=== PATIENT | female | born 1990 | race Caucasian/White ===

== ENCOUNTER 2016-10-16 19:06 | Emergency (ER) | payer OTHER ==
[~2016-10-16] VITALS: Ht 162.6 cm; Wt 60.0 kg
[~2016-10-16 19:06] MED LIST: ABILIFY5 MG PO; ASPIRIN81 M2 PO; ATIVAN0.5 M1 PO; B COMPLETE1 EACH PO; BENADRYL50 MG PO; BENTYL20 MG PO; BUPROPION XL300 MG PO; BUTALB-APAP-CA1 EACH; BUTALB-APAP-CA1 EACH PO; CIPRO500 MG PO; CYMBALTA30 MG PO; DEPAKOTE ER250 MG PO; DEPAKOTE250 MG PO; DEPO ESTRADIO5 MG/ML; DICYCLOMINE HCL10 MG PO; DIVALPROEX SOD250 M1 PO; DIVALPROEX SOD250 MG; ENDOCET 5-3251 EACH PO; EPIPEN ADU0.3 MG/0.3 IM; EXCEDRIN MIGRA1 EAC3 PO; FLEXERIL10 MG PO; FLEXERIL5 MG PO; FLUTICASONE PRO16 GM; GABAPENTIN300 MG PO; GUMMI BEAR MUL1 EACH PO; IBUPROFEN800 MG PO; IMITREX100 MG PO; IMITREX50 MG PO; IMITREX6 MG/0.5 M SC; KEFLEX500 MG PO; KENALOG,ARISTOC80 G1 TP; LITHIUM CARBON300 MG; LORATADINE10 M2; MAALOX ADVANCE355 ML PO; MAXALT10 MG PO; MELATONIN5 M1 PO; METOCLOPRAMIDE10 MG PO; METOPROLOL SUCC50 MG PO; MOTRIN800 MG PO; MULTIVITAMIN1 EAC2 PO; NAMENDA10 MG PO; NEURONTIN; NEURONTIN100 MG PO; NEURONTIN300 MG PO; NITROFURANTOIN100 M3 PO; NORCO 5/3251 TABLET PO; NORTRIPTYLINE H10 MG PO; NYSTATIN-TRIAMC15 G1 TP; ONDANSETRON HCL4 MG PO; ONDANSETRON ODT4 MG PO; PANTOPRAZOLE SO40 MG PO; PEN-VEE K,VEET500 MG PO; PREDNISONE10 M1 PO; PRENATABS RX T1 EACH PO; PRENATAL VITAM1 EAC2 PO; PRILOSEC40 MG PO; PROAIR HFA8.5 GM IH; PROMETHAZINE HC25 M1 PO; PROTONIX40 MG PO; QUETIAPINE FUM100 MG PO; REGLAN10 MG PO; SEROQUEL100 MG PO; SERTRALINE HCL50 MG PO; TESSALON200 MG PO; TOPAMAX25 MG PO; TOPIRAMATE25 MG PO; TOPROL XL50 MG PO; TORADOL10 MG PO; TRAMADOL HCL50 MG PO; TRAZODONE HCL50 MG PO; TYLENOL EXTRA500 MG PO; TYLENOL REGULA325 MG PO; TYLENOL WITH C1 EACH PO; ULTRACET1 TABLET PO; UNISOM25 MG PO; VITAMIN B-12250 MCG PO; VITAMIN D-32000 UNI1 PO; VITAMIN D3 5,01 EACH PO; VITAMIN D400 INTUNI PO; WELLBUTRIN XL300 MG PO; ZANTAC150 MG PO; ZOFRAN ODT4 MG PO; ZOFRAN ODT8 MG PO; ZOFRAN4 MG PO; ZOFRAN8 MG PO; ZOLOFT25 MG PO; ZOLOFT50 MG PO; vitamin b6 PO
[2016-10-16 22:41] LABS: ADD MIUA? YES; BILIRUBIN NEGATIVE; BLOOD NEGATIVE; COLOR YELLOW ((YELLOW)); GLUCOSE (STRIP) NEGATIVE; KETONES NEGATIVE; LEUKOCYTES NEGATIVE; NITRITE NEGATIVE; PROTEIN (STRIP) NEGATIVE; SPECIFIC GRAVITY 1.016 (1.000-1.030); UROBILINOGEN 0.2 MG/DL (0.2-1.0)
[2016-10-16 22:45] LABS: BACTERIA RARE /HPF; EPITHELIAL CELLS RARE /HPF; MUCUS TRACE /LPF
[2016-10-16] MEDS ORDERED: REGLAN10 MG PO (22:49)
[2016-10-16] MEDS ORDERED: NAPROSYN500 MG PO (22:49)
[2016-10-16 23:28] VITALS: BP 147/90
== END 2016-10-16 23:46 | disposition home or self-care (01) ==
LOC: EME 19:06
PROVIDERS: Physician Assistant
DX: G43.909 Migraine, unspecified, not intractable, without status migrainosus (principal); J45.909 Unspecified asthma, uncomplicated; M79.7 Fibromyalgia; I10 Essential (primary) hypertension; K21.9 Gastro-esophageal reflux disease without esophagitis; F17.200 Nicotine dependence, unspecified, uncomplicated
CPT/HCPCS: 81003; 99281; 99285; J1200; J1885; J2765; J3030; J7030

== ENCOUNTER 2016-10-23 15:41 | Emergency (ER) | payer OTHER ==
[~2016-10-23] VITALS: Ht 162.6 cm; Wt 60.0 kg
[~2016-10-23 15:41] MED LIST changes: +NAPROSYN500 MG PO
[2016-10-23] MEDS ORDERED: FLEXERIL10 MG PO (19:15)
[2016-10-23] MEDS ORDERED: MOTRIN800 MG PO (19:15)
[2016-10-23 19:25] VITALS: BP 127/79
== END 2016-10-23 19:26 | disposition home or self-care (01) ==
LOC: EME 15:41
DX: S39.012A Strain of muscle, fascia and tendon of lower back, initial encounter (principal); M79.604 Pain in right leg; M54.2 Cervicalgia; X58.XXXA Exposure to other specified factors, initial encounter; G89.29 Other chronic pain; F17.200 Nicotine dependence, unspecified, uncomplicated
CPT/HCPCS: 72100; 99281; 99284; J1885

== ENCOUNTER 2016-10-27 13:23 | Emergency (ER) | payer OTHER ==
[~2016-10-27] VITALS: Ht 160 cm; Wt 59.4 kg
[2016-10-27] MEDS ORDERED: SUMATRIPTAN SU100 MG PO (14:26)
[2016-10-27] MEDS ORDERED: FIORICET,ESG1 TABLET PO (15:09)
[2016-10-27 15:20] VITALS: BP 119/76
== END 2016-10-27 15:26 | disposition home or self-care (01) ==
LOC: EME 13:23
DX: G43.109 Migraine with aura, not intractable, without status migrainosus (principal); K21.9 Gastro-esophageal reflux disease without esophagitis; M79.7 Fibromyalgia; F31.9 Bipolar disorder, unspecified; F17.200 Nicotine dependence, unspecified, uncomplicated
CPT/HCPCS: 99281; 99285; J0780; J1100; J1885; J7030

== ENCOUNTER 2016-11-02 14:07 | Emergency (ER) | payer OTHER ==
[~2016-11-02] VITALS: Ht 162.6 cm; Wt 60.0 kg
[~2016-11-02 14:07] MED LIST changes: +FIORICET,ESG1 TABLET PO; +SUMATRIPTAN SU100 MG PO
[2016-11-02 18:03] VITALS: BP 125/75
== END 2016-11-02 18:46 | disposition home or self-care (01) ==
LOC: EME 14:07
DX: R51 Headache (principal); F17.200 Nicotine dependence, unspecified, uncomplicated
CPT/HCPCS: 99281; 99284; J0780; J1100; J1200; J1885

== ENCOUNTER 2016-12-13 08:33 | Emergency (ER) | payer OTHER ==
[~2016-12-13] VITALS: Ht 162.6 cm; Wt 61.9 kg
[2016-12-13 08:34] VITALS: BP 141/93
[2016-12-13] MEDS ORDERED: NAPROSYN500 MG PO (09:41)
[2016-12-13] MEDS ORDERED: FLEXERIL10 MG PO (09:54)
== END 2016-12-13 09:58 | disposition home or self-care (01) ==
LOC: EME 08:33
DX: S43.402A Unspecified sprain of left shoulder joint, initial encounter (principal); S40.022A Contusion of left upper arm, initial encounter; Z88.6 Allergy status to analgesic agent
CPT/HCPCS: 73030; 73060; 99281; 99282

== ENCOUNTER 2016-12-25 22:25 | Emergency (ER) | payer OTHER ==
[~2016-12-25] VITALS: Ht 162.6 cm; Wt 62.6 kg
[2016-12-26 00:25] VITALS: BP 121/90
== END 2016-12-26 00:25 | disposition left against medical advice (07) ==
LOC: EME 22:25
DX: R11.2 Nausea with vomiting, unspecified (principal); R10.32 Left lower quadrant pain; J45.909 Unspecified asthma, uncomplicated; F31.9 Bipolar disorder, unspecified; M79.7 Fibromyalgia; I10 Essential (primary) hypertension; K21.9 Gastro-esophageal reflux disease without esophagitis; F17.200 Nicotine dependence, unspecified, uncomplicated
CPT/HCPCS: 99281; 99283

== ENCOUNTER 2017-02-11 20:45 | Emergency (ER) | payer OTHER ==
[~2017-02-11] VITALS: Ht 162.6 cm; Wt 64.7 kg
[2017-02-11 21:35] LABS: ADD MIUA? YES; BILIRUBIN NEGATIVE; BLOOD MODERATE; COLOR YELLOW ((YELLOW)); GLUCOSE (STRIP) NEGATIVE; KETONES NEGATIVE; LEUKOCYTES NEGATIVE; NITRITE NEGATIVE; PROTEIN (STRIP) NEGATIVE; SPECIFIC GRAVITY 1.016 (1.000-1.030); UROBILINOGEN 0.2 MG/DL (0.2-1.0)
[2017-02-11 21:52] LABS: BACTERIA RARE /HPF; EPITHELIAL CELLS RARE /HPF; MUCUS TRACE /LPF; RED BLOOD CELLS 0-5 /HPF (0-5); UCUL ADDED? NO; WHITE BLOOD CELLS 0-5 /HPF (0-5)
[2017-02-11 22:01] LABS: HEMATOCRIT 40.6 % (36.0-46.0); MCH 33.9 PG (29.0-34.0); MCHC 34.7 G/DL (30.0-36.0); MCV 97.6 FL (83-99); MEAN PLAT.VOLUME 10.1 uM^3 (9.5-12.4); PLATELET COUNT 279 K/uL (156-360); RBC DIS.WIDTH-CV 11.3 % (11.8-14.6); RED BLOOD COUNT 4.16 M/uL (3.80-5.20); WHITE BLOOD COUNT 13.6 K/uL (4.1-10.2)
[2017-02-11 22:11] LABS: CHLORIDE 110 mEq/L (99-109); POTASSIUM 3.9 mEq/L (3.7-5.4); SODIUM 138 mEq/L (136-147)
[2017-02-11 22:13] LABS: GLUCOSE 106 mg/dL (70-99)
[2017-02-11 22:15] LABS: ANION GAP 8 MEQ/L (2-14)
[2017-02-11 22:17] LABS: GFR ESTIMATE (CALCULATED) > 59 mL/min/
[2017-02-11 22:18] LABS: UREA NITROGEN (BUN) 11 mg/dL (9-23)
[2017-02-11 22:25] LABS: QUANTITATIVE HCG < 4.0 MIU/ML
[2017-02-12 00:41] VITALS: BP 133/101
== END 2017-02-12 00:42 | disposition home or self-care (01) ==
LOC: EME 20:45
DX: R11.2 Nausea with vomiting, unspecified (principal); R19.7 Diarrhea, unspecified; I10 Essential (primary) hypertension; K21.9 Gastro-esophageal reflux disease without esophagitis; Z87.891 Personal history of nicotine dependence
CPT/HCPCS: 80048; 81003; 84702; 85027; 99281; 99284; J2405; J7030

== ENCOUNTER 2017-04-25 09:20 | Day surgery (SDC) | payer OTHER ==
[~2017-04-25] VITALS: Ht 162.6 cm; Wt 63.0 kg
[~2017-04-25 09:20] MED LIST changes: +NEURONTIN400 MG PO; +SKELAXIN800 MG PO
== END 2017-04-25 12:52 | disposition home or self-care (01) ==
LOC: PAIN 09:20 → SDC 10:00 → PAIN 12:52
DX: M47.816 Spondylosis without myelopathy or radiculopathy, lumbar region (principal); M54.5 Low back pain; G89.29 Other chronic pain; M51.36 Other intervertebral disc degeneration, lumbar region; M54.2 Cervicalgia; M79.7 Fibromyalgia; F43.23 Adjustment disorder with mixed anxiety and depressed mood; I10 Essential (primary) hypertension; J45.30 Mild persistent asthma, uncomplicated; Z87.891 Personal history of nicotine dependence
CPT/HCPCS: J1030; J1200; J2250; J2405; J2550; J3010; S0020

== ENCOUNTER 2017-05-19 19:26 | Emergency (ER) | payer OTHER ==
[~2017-05-19] VITALS: Ht 162.6 cm; Wt 62.9 kg
[~2017-05-19 19:26] MED LIST changes: +ANTIVERT25 MG PO; +FIORICET 50-301 EAC1 PO
[2017-05-19 21:26] VITALS: BP 137/104
== END 2017-05-19 21:33 | disposition home or self-care (01) ==
LOC: EME 19:26
DX: S30.0XXA Contusion of lower back and pelvis, initial encounter (principal); S70.11XA Contusion of right thigh, initial encounter; W10.9XXA Fall (on) (from) unspecified stairs and steps, initial encounter; M54.16 Radiculopathy, lumbar region; Z87.891 Personal history of nicotine dependence
CPT/HCPCS: 72170; 99281; 99284; J1100

== ENCOUNTER 2017-06-17 20:57 | Emergency (ER) | payer OTHER ==
[~2017-06-17] VITALS: Ht 162.6 cm; Wt 65.7 kg
[2017-06-17 21:25] LABS: MCH 33.6 PG (29.0-34.0); MCHC 35.1 G/DL (30.0-36.0); MCV 95.7 FL (83-99); MEAN PLAT.VOLUME 10.1 uM^3 (9.5-12.4); PLATELET COUNT 326 K/uL (156-360); RBC DIS.WIDTH-CV 11.9 % (11.8-14.6); RBC DIS.WIDTH-SD 41.7 % (39-53); WHITE BLOOD COUNT 14.4 K/uL (4.1-10.2)
[2017-06-17 21:33] LABS: CHLORIDE 106 mEq/L (99-109); SODIUM 139 mEq/L (136-147)
[2017-06-17 21:35] LABS: GLUCOSE 109 mg/dL (70-99)
[2017-06-17 21:37] LABS: ANION GAP 11 MEQ/L (2-14); TOTAL BILIRUBIN 0.2 mg/dL (0.0-1.0)
[2017-06-17 21:39] LABS: ALKALINE PHOSPHATASE 82 IU/L (3-129); GFR ESTIMATE (CALCULATED) > 59 mL/min/
[2017-06-17 21:40] LABS: UREA NITROGEN (BUN) 27 mg/dL (9-23)
[2017-06-17 21:48] LABS: QUANTITATIVE HCG < 4.0 MIU/ML
[2017-06-17 22:05] LABS: ADD MIUA? YES; BILIRUBIN NEGATIVE; BLOOD LARGE; COLOR YELLOW ((YELLOW)); GLUCOSE (STRIP) NEGATIVE; KETONES NEGATIVE; LEUKOCYTES SMALL; NITRITE NEGATIVE; PROTEIN (STRIP) 30; SPECIFIC GRAVITY 1.027 (1.000-1.030); UROBILINOGEN 0.2 MG/DL (0.2-1.0)
[2017-06-17 22:15] LABS: BACTERIA RARE /HPF; EPITHELIAL CELLS 2+ /HPF; MUCUS 1+ /LPF; UCUL ADDED? YES
[2017-06-18] MEDS ORDERED: ONDANSETRON ODT4 MG PO (00:32)
[2017-06-18 00:53] LABS: TROP-I INTERPRETATION NEGATIVE; TROPONIN-I < 0.01 ng/mL (0.0-0.30)
[2017-06-18 01:28] VITALS: BP 132/88
[2017-06-19] MEDS ORDERED: VITAMIN D5000 UNI1 PO (09:54)
[2017-06-19] MEDS ORDERED: ERGOCALCIF50000 UNIT PO (09:54)
[2017-06-19] MEDS ORDERED: VITAMIN B-12250 MCG PO (09:54)
[2017-06-19 13:08] LABS: CHLAMYDIA TRACHOMATIS NEGATIVE; NEISSERIA GONORRHOEAE NEGATIVE
== END 2017-06-18 01:29 | disposition home or self-care (01) ==
LOC: EME 20:57
PROVIDERS: Emergency Medicine
DX: R10.30 Lower abdominal pain, unspecified (principal); R10.10 Upper abdominal pain, unspecified; R07.9 Chest pain, unspecified; R11.10 Vomiting, unspecified; R00.0 Tachycardia, unspecified; Z98.890 Other specified postprocedural states; M79.7 Fibromyalgia; K21.9 Gastro-esophageal reflux disease without esophagitis; I10 Essential (primary) hypertension; J45.909 Unspecified asthma, uncomplicated; F41.9 Anxiety disorder, unspecified; F32.9 Major depressive disorder, single episode, unspecified; F31.9 Bipolar disorder, unspecified; G43.909 Migraine, unspecified, not intractable, without status migrainosus; Z87.891 Personal history of nicotine dependence; Z88.5 Allergy status to narcotic agent; Z88.8 Allergy status to other drugs, medicaments and biological substances
CPT/HCPCS: 80053; 81003; 84443; 84484; 84702; 85027; 87086; 87210; 87491; 87591; 93005; 99281; 99285; J2405; J7030

== ENCOUNTER 2017-06-20 10:45 | Day surgery (SDC) | payer OTHER ==
[~2017-06-20] VITALS: Ht 162.6 cm; Wt 63.0 kg
[~2017-06-20 10:45] MED LIST changes: +ERGOCALCIF50000 UNIT PO; +VITAMIN D5000 UNI1 PO
== END 2017-06-20 13:03 | disposition home or self-care (01) ==
LOC: PAIN 10:45 → SDC 11:00 → PAIN 11:00
DX: M47.816 Spondylosis without myelopathy or radiculopathy, lumbar region (principal); G89.29 Other chronic pain; M54.5 Low back pain; M51.36 Other intervertebral disc degeneration, lumbar region; M54.2 Cervicalgia; M79.7 Fibromyalgia; I10 Essential (primary) hypertension; G93.5 Compression of brain; E66.3 Overweight; Z68.23 Body mass index [BMI] 23.0-23.9, adult; J45.909 Unspecified asthma, uncomplicated; Z87.891 Personal history of nicotine dependence
CPT/HCPCS: J1030; J1885; J2250; J3010; S0020

== ENCOUNTER 2017-06-27 10:25 | Day surgery (SDC) | payer OTHER ==
[~2017-06-27] VITALS: Ht 162.6 cm; Wt 63.0 kg
== END 2017-06-27 13:30 | disposition home or self-care (01) ==
LOC: PAIN 10:25 → SDC 11:00 → PAIN 11:00
DX: M47.816 Spondylosis without myelopathy or radiculopathy, lumbar region (principal); M54.5 Low back pain; G89.29 Other chronic pain; M51.36 Other intervertebral disc degeneration, lumbar region; I10 Essential (primary) hypertension; F41.9 Anxiety disorder, unspecified; K21.9 Gastro-esophageal reflux disease without esophagitis; R94.31 Abnormal electrocardiogram [ECG] [EKG]; Z87.891 Personal history of nicotine dependence
CPT/HCPCS: J1030; J1885; J2250; J3010; S0020

== ENCOUNTER 2017-11-11 00:43 | Emergency (ER) | payer OTHER ==
[~2017-11-11] VITALS: Ht 162.6 cm; Wt 68.3 kg
[2017-11-11 01:15] LABS: HEMATOCRIT 38.6 % (36.0-46.0); HEMOGLOBIN 13.6 G/DL (11.9-15.5); MCH 33.3 PG (29.0-34.0); MCHC 35.2 G/DL (30.0-36.0); MCV 94.6 FL (83-99); PLATELET COUNT 261 K/uL (156-360); RBC DIS.WIDTH-CV 11.8 % (11.8-14.6); RBC DIS.WIDTH-SD 40.7 % (39-53); RED BLOOD COUNT 4.08 M/uL (3.80-5.20); WHITE BLOOD COUNT 7.6 K/uL (4.1-10.2)
[2017-11-11 01:28] LABS: ALBUMIN 4.5 g/dL (3.2-4.8); CHLORIDE 108 mEq/L (99-109); POTASSIUM 4.1 mEq/L (3.7-5.4); SODIUM 141 mEq/L (136-147)
[2017-11-11 01:30] LABS: GLUCOSE 108 mg/dL (70-99)
[2017-11-11 01:31] LABS: TOTAL PROTEIN 7.2 g/dL (6.4-8.3)
[2017-11-11 01:32] LABS: TOTAL BILIRUBIN 0.4 mg/dL (0.0-1.0)
[2017-11-11 01:34] LABS: ALKALINE PHOSPHATASE 71 IU/L (3-129); CREATININE 0.8 mg/dL (0.6-1.3); GFR ESTIMATE (CALCULATED) > 59 mL/min/
[2017-11-11 01:35] LABS: UREA NITROGEN (BUN) 8 mg/dL (9-23)
[2017-11-11 01:36] LABS: AST (GOT) 15 IU/L (2-34)
[2017-11-11 01:37] LABS: ALT (GPT) 11 IU/L (3-49); LIPASE 33 U/L (1.0-51.0)
[2017-11-11 01:44] LABS: QUANTITATIVE HCG < 4.0 MIU/ML
[2017-11-11 02:31] LABS: SERUM ETHYL ALCOHOL < 10 mg/dL
[2017-11-11 02:31] LABS: APPEARANCE CLEAR ((CLEAR)); BILIRUBIN NEGATIVE; BLOOD NEGATIVE; COLOR YELLOW ((YELLOW)); GLUCOSE (STRIP) NEGATIVE; KETONES 5; LEUKOCYTES NEGATIVE; NITRITE NEGATIVE; PROTEIN (STRIP) NEGATIVE; SPECIFIC GRAVITY 1.021 (1.000-1.030); UCUL ADDED? NO; UROBILINOGEN 0.2 MG/DL (0.2-1.0)
[2017-11-11] MEDS ORDERED: KEFLEX500 MG PO (04:39)
[2017-11-11 05:05] LABS: AMPHETAMINE NEGATIVE (500 ng/mL); BARBITURATES NEGATIVE (200 ng/mL); BENZODIAZEPINES NEGATIVE (150 ng/mL); BUPRENORPHINE NEGATIVE (10 ng/mL); COCAINE NEGATIVE (150 ng/mL); METHADONE NEGATIVE (200 ng/mL); METHAMPHETAMINE NEGATIVE (500 ng/mL); OPIATES (MORPHINE) NEGATIVE (100 ng/mL); OXYCODONE NEGATIVE (100 ng/mL); PHENCYCLIDINE NEGATIVE (25 ng/mL); PROPOXYPHENE NEGATIVE (300 ng/mL); THC CANNABINOIDS NEGATIVE (50 ng/mL); TRICYCLIC ANTIDEPRESSANTS NEGATIVE (300 ng/mL)
[2017-11-11] MEDS ORDERED: MECLIZINE HCL25 MG PO (05:56)
[2017-11-11 06:10] VITALS: BP 112/75
== END 2017-11-11 06:13 | disposition home or self-care (01) ==
LOC: EME 00:43
PROVIDERS: Emergency Medicine
DX: R42 Dizziness and giddiness (principal); F31.9 Bipolar disorder, unspecified; J45.909 Unspecified asthma, uncomplicated; M79.7 Fibromyalgia; Z88.5 Allergy status to narcotic agent; Z87.891 Personal history of nicotine dependence
CPT/HCPCS: 70450; 80053; 81003; 83690; 84702; 85027; 99281; 99285; G0480; J2405; J7030

== ENCOUNTER 2018-01-05 22:59 | Emergency (ER) | payer OTHER ==
[~2018-01-05] VITALS: Ht 162.6 cm; Wt 69.1 kg
[~2018-01-05 22:59] MED LIST changes: +MECLIZINE HCL25 MG PO
[2018-01-05 23:14] VITALS: BP 127/90
[2018-01-06] MEDS ORDERED: NAPROSYN500 MG PO (01:01)
== END 2018-01-06 01:22 | disposition home or self-care (01) ==
LOC: EME 22:59
DX: S90.31XA Contusion of right foot, initial encounter (principal); W20.8XXA Other cause of strike by thrown, projected or falling object, initial encounter; Z88.8 Allergy status to other drugs, medicaments and biological substances; Z91.030 Bee allergy status
CPT/HCPCS: 73630; 99281; 99283

== ENCOUNTER 2018-02-12 16:53 | Emergency (ER) | payer OTHER ==
[~2018-02-12] VITALS: Ht 162.6 cm; Wt 73.2 kg
[2018-02-12 17:42] LABS: BASOPHIL (%) 0.6 % (0-1); BASOPHIL COUNT 0.1 K/uL (0-0.1); EOSINOPHIL (%) 1.5 % (0-5); EOSINOPHIL COUNT 0.2 K/uL (0-0.3); IMMATURE GRANULOCYTE (%) 0.4 % (0.0-0.7); LYMPHOCYTE (%) 25.4 % (15-42); LYMPHOCYTE COUNT 2.6 K/uL (1.0-2.8); MCH 33.2 PG (29.0-34.0); MCHC 34.9 G/DL (30.0-36.0); MCV 95.1 FL (83-99); MONOCYTE (%) 5.5 % (3-12); MONOCYTE COUNT 0.6 K/uL (0-0.8); NEUTROPHIL (%) 66.6 % (45-76); NEUTROPHIL COUNT 6.7 K/uL (1.8-6.4); PLATELET COUNT 299 K/uL (156-360); RED BLOOD COUNT 4.52 M/uL (3.80-5.20); WHITE BLOOD COUNT 10.1 K/uL (4.1-10.2)
[2018-02-12 17:52] LABS: AMYLASE 80 IU/L (1-118); CHLORIDE 107 mEq/L (99-109); POTASSIUM 3.9 mEq/L (3.7-5.4); SODIUM 141 mEq/L (136-147)
[2018-02-12 17:54] LABS: GLUCOSE 85 mg/dL (70-99)
[2018-02-12 17:57] LABS: SERUM ETHYL ALCOHOL < 10 mg/dL
[2018-02-12 17:58] LABS: CREATININE 0.8 mg/dL (0.6-1.3); GFR ESTIMATE (CALCULATED) > 59 mL/min/
[2018-02-12 17:59] LABS: UREA NITROGEN (BUN) 7 mg/dL (9-23)
[2018-02-12 18:01] LABS: LIPASE 35 U/L (1.0-51.0)
[2018-02-12 18:07] LABS: QUANTITATIVE HCG < 4.0 MIU/ML
[2018-02-12 18:25] LABS: APPEARANCE CLEAR ((CLEAR)); BILIRUBIN NEGATIVE; BLOOD NEGATIVE; COLOR COLORLESS ((YELLOW)); GLUCOSE (STRIP) NEGATIVE; KETONES NEGATIVE; LEUKOCYTES NEGATIVE; NITRITE NEGATIVE; PROTEIN (STRIP) NEGATIVE; SPECIFIC GRAVITY 1.005 (1.000-1.030); UCUL ADDED? NO; UROBILINOGEN 0.2 MG/DL (0.2-1.0)
[2018-02-12 18:33] LABS: AMPHETAMINE NEGATIVE (500 ng/mL); BARBITURATES NEGATIVE (200 ng/mL); BENZODIAZEPINES NEGATIVE (150 ng/mL); BUPRENORPHINE NEGATIVE (10 ng/mL); COCAINE NEGATIVE (150 ng/mL); METHADONE NEGATIVE (200 ng/mL); METHAMPHETAMINE NEGATIVE (500 ng/mL); OPIATES (MORPHINE) NEGATIVE (100 ng/mL); OXYCODONE NEGATIVE (100 ng/mL); PHENCYCLIDINE NEGATIVE (25 ng/mL); PROPOXYPHENE NEGATIVE (300 ng/mL); THC CANNABINOIDS NEGATIVE (50 ng/mL); TRICYCLIC ANTIDEPRESSANTS NEGATIVE (300 ng/mL)
[2018-02-12] MEDS ORDERED: SKELAXIN800 MG PO (20:56)
[2018-02-12] MEDS ORDERED: INDOCIN50 MG PO (20:56)
[2018-02-12] MEDS ORDERED: PERCOCET 10/1 TABLET PO (20:56)
[2018-02-12 21:43] VITALS: BP 135/95
== END 2018-02-12 21:52 | disposition home or self-care (01) ==
LOC: TRA 16:53
PROVIDERS: Emergency Medicine
DX: S50.811A Abrasion of right forearm, initial encounter (principal); S39.012A Strain of muscle, fascia and tendon of lower back, initial encounter; S16.1XXA Strain of muscle, fascia and tendon at neck level, initial encounter; S30.1XXA Contusion of abdominal wall, initial encounter; R51 Headache; W22.11XA Striking against or struck by driver side automobile airbag, initial encounter; V43.52XA Car driver injured in collision with other type car in traffic accident, initial encounter; Y92.410 Unspecified street and highway as the place of occurrence of the external cause; I10 Essential (primary) hypertension; M79.7 Fibromyalgia; J45.909 Unspecified asthma, uncomplicated; F31.9 Bipolar disorder, unspecified; G43.909 Migraine, unspecified, not intractable, without status migrainosus; Z72.0 Tobacco use; Z90.49 Acquired absence of other specified parts of digestive tract; Z88.5 Allergy status to narcotic agent; Z88.8 Allergy status to other drugs, medicaments and biological substances
CPT/HCPCS: 70450; 71260; 72125; 74177; 80048; 81003; 82150; 83690; 84702; 85025; 86850; 86900; 86901; 99281; 99285; G0480; J2405; J3010

== ENCOUNTER 2018-02-21 07:51 | Emergency (ER) | payer OTHER ==
[~2018-02-21] VITALS: Ht 162.6 cm; Wt 70.0 kg
[~2018-02-21 07:51] MED LIST changes: +INDOCIN50 MG PO; +PERCOCET 10/1 TABLET PO
[2018-02-21 09:03] LABS: HEMATOCRIT 38.7 % (36.0-46.0); HEMOGLOBIN 13.6 G/DL (11.9-15.5); MCH 33.3 PG (29.0-34.0); MCHC 35.1 G/DL (30.0-36.0); MCV 94.9 FL (83-99); PLATELET COUNT 342 K/uL (156-360); RBC DIS.WIDTH-CV 11.9 % (11.8-14.6); RBC DIS.WIDTH-SD 41.6 % (39-53); RED BLOOD COUNT 4.08 M/uL (3.80-5.20); WHITE BLOOD COUNT 9.6 K/uL (4.1-10.2)
[2018-02-21 09:12] LABS: ALBUMIN 4.7 g/dL (3.2-4.8); CHLORIDE 108 mEq/L (99-109); POTASSIUM 3.6 mEq/L (3.7-5.4); SODIUM 140 mEq/L (136-147)
[2018-02-21 09:14] LABS: APPEARANCE CLEAR ((CLEAR)); BILIRUBIN NEGATIVE; BLOOD SMALL; COLOR YELLOW ((YELLOW)); GLUCOSE (STRIP) NEGATIVE; KETONES NEGATIVE; LEUKOCYTES NEGATIVE; NITRITE NEGATIVE; PROTEIN (STRIP) NEGATIVE; SPECIFIC GRAVITY 1.014 (1.000-1.030); UROBILINOGEN 0.2 MG/DL (0.2-1.0)
[2018-02-21 09:14] LABS: GLUCOSE 130 mg/dL (70-99)
[2018-02-21 09:16] LABS: BACTERIA NONE SEEN /HPF; EPITHELIAL CELLS RARE /HPF; MUCUS TRACE /LPF; RED BLOOD CELLS 0-5 /HPF (0-5); WHITE BLOOD CELLS 0-5 /HPF (0-5)
[2018-02-21 09:16] LABS: TOTAL BILIRUBIN 0.4 mg/dL (0.0-1.0)
[2018-02-21 09:18] LABS: ALKALINE PHOSPHATASE 73 IU/L (3-129); CREATININE 0.7 mg/dL (0.6-1.3); GFR ESTIMATE (CALCULATED) > 59 mL/min/
[2018-02-21 09:19] LABS: UREA NITROGEN (BUN) 9 mg/dL (9-23)
[2018-02-21 09:20] LABS: AST (GOT) 15 IU/L (2-34)
[2018-02-21 09:21] LABS: ALT (GPT) 11 IU/L (3-49); LIPASE 43 U/L (1.0-51.0)
[2018-02-21 09:27] LABS: QUANTITATIVE HCG < 4.0 MIU/ML
[2018-02-21] MEDS ORDERED: FLEXERIL10 MG PO (09:51)
[2018-02-21] MEDS ORDERED: NAPROSYN500 MG PO (09:51)
[2018-02-21] MEDS ORDERED: ZOFRAN ODT4 MG PO (09:52)
[2018-02-21 10:27] VITALS: BP 125/87
== END 2018-02-21 10:29 | disposition home or self-care (01) ==
LOC: EME 07:51
PROVIDERS: Nurse Practitioner Family
DX: S20.212A Contusion of left front wall of thorax, initial encounter (principal); S80.02XA Contusion of left knee, initial encounter; R11.2 Nausea with vomiting, unspecified; V49.40XA Driver injured in collision with unspecified motor vehicles in traffic accident, initial encounter; Y92.410 Unspecified street and highway as the place of occurrence of the external cause; Z86.79 Personal history of other diseases of the circulatory system; Z88.5 Allergy status to narcotic agent; Z88.8 Allergy status to other drugs, medicaments and biological substances
CPT/HCPCS: 71046; 73564; 73590; 80053; 81003; 83690; 84702; 85027; 99281; 99283